=== PATIENT | female | born 1975 | race Caucasian/White ===

== ENCOUNTER → 2023-12-03 | Outpatient (CLI) | payer OTHER ==
--- NOTE | 2023-12-04 10:53 | XR ---
EXAMINATION TYPE: XR KUB DATE OF EXAM: 12/03/2023 12:37 PM CLINICAL INDICATION:Female, 48 years old with history of N20.0 Calculus of Kidney; COMPARISON: None. TECHNIQUE: One radiographic view of the abdomen was obtained. FINDINGS: The bowel gas pattern is nonspecific without dilated loops of small or large bowel. There i s no evidence for organomegaly or pneumoperitoneum. The osseous structures are intact. No abnormal calcifications are present. Fecal material and gas are demonstrated throughout the colon and rectum. IMPRESSION: Nonspecific bowel gas pattern without radiographic evidence for acute process.
== END | disposition home or self-care (01) ==
LOC: RADXRMAIN 12:07
PROVIDERS: ATTEND Urology
DX: N20.0 Calculus of kidney (principal)
CPT/HCPCS: 74018

== ENCOUNTER → 2024-01-14 | Outpatient (CLI) | payer OTHER ==
--- NOTE | 2024-01-15 11:18 | FL ---
ESOPHOGRAM. HISTORY: Dysphagia Esophagram was performed per the air contrast technique. The patient swallowed barium and effervesce nt crystals without difficulty or delay. Esophageal peristalsis and motility appear to be within normal limits. There is no evidence for filling defect, mass or diverticulum. No hiatal hernia seen. Subsequently single contrast cervical esophagram was performed which fails demonstrate evidence for a spiration penetration or mass. IMPRESSION: Unremarkable study.
== END | disposition home or self-care (01) ==
LOC: RADUSWWP 09:30
PROVIDERS: ATTEND Surgery Plastic and Reconstructive Surgery
DX: K44.9 Diaphragmatic hernia without obstruction or gangrene (principal); R13.10 Dysphagia, unspecified
CPT/HCPCS: 74220

== ENCOUNTER 2024-01-22 08:43 | Day surgery (SDC) | payer OTHER ==
--- NOTE | 2024-01-22 08:01 | P.GSHP ---
History of Present Illness H&P Date: 01/22/24 CHIEF COMPLAINT: GERD HISTORY OF PRESENT ILLNESS: The patient is a 48-year-old female who presents reports gastroesophageal reflux disease. Upper endoscopy was offered for further evaluation and management. PAST MEDICAL HISTORY: Please see list. PAST SURGICAL HISTORY: Please see list. MEDICATIONS: Please see list. ALLERGIES: Please see list. SOCIAL HISTORY: No illicit drug use FAMILY HISTORY: No reports of Crohn disease or ulcerative colitis. REVIEW OF ORGAN SYSTEMS: CONSTITUTIONAL: No reports of fevers or chills. GI: Denies any blood in stools or constipation. PHYSICAL EXAM: VITAL SIGNS: Stable GENERAL: Well-developed and pleasant in no acute distress. HEENT: No scleral icterus. Extraocular movements grossly intact. Moist buccal mucosa. NECK: Supple without lymphadenopathy. CHEST: Unlabored respirations. Equal bilateral excursions. CARDIOVASCULAR: Regular rate and rhythm. Distal 2+ pulses. ABDOMEN: Soft, nondistended. MUSCULOSKELETAL: No clubbing, cyanosis, or edema. ASSESSMENT: 1. Gastroesophageal reflux disease PLAN: 1. Recommend proceeding with an upper endoscopy Past Medical History Past Medical History: Diabetes Mellitus, GERD/Reflux, Hypertension, Osteoarthritis (OA), Sleep Apnea/CPAP/BIPAP Additional Past Medical History / Comment(s): GERD. CPAP History of Any Multi-Drug Resistant Organisms: None Reported Past Surgical History: Breast Surgery, Section, Hysterectomy, Joint Replacement Additional Past Surgical History / Comment(s): D&C, laparoscopy abdominal for infertility issues, bilateral total knee replacements, breast reduction. Past Anesthesia/Blood Transfusion Reactions: No Reported Reaction Smoking Status: Never smoker - Past Family History Mother Family Medical History: Hypertension Father Family Medical History: Cancer Medications and Allergies Home Medications Medication Instructions Recorded Confirmed Type ARIPiprazole [Abilify] 15 mg PO QAM 01/20/24 01/20/24 History Cyanocobalamin [Vitamin B-12] 500 mcg PO QAM 01/20/24 01/20/24 History DULoxetine HCL [Cymbalta] 60 mg PO QAM 01/20/24 01/20/24 History Dulaglutide [Trulicity] 3 mg SQ ASCENCIO 01/20/24 01/20/24 History Omeprazole 40 mg PO QAM 01/20/24 01/20/24 History hydroCHLOROthiazide 20 mg PO QAM 01/20/24 01/20/24 History lisinopriL 40 mg PO QAM 01/20/24 01/20/24 History metFORMIN HCL 500 mg PO BID-W/MEALS 01/20/24 01/20/24 History traZODone HCL [Desyrel] 50 - 150 mg PO HS 01/20/24 01/20/24 History Allergies Allergy/AdvReac Type Severity Reaction Status Date / Time seasonal Allergy runny Uncoded 01/20/24 14:51 nose, sneezing.
[~2024-01-22 08:43] MED LIST: LIDOCAINE 1% (10MG/ML) FOR IV START INTRADERMA PRN
[2024-01-22] MEDS: LACTATED RINGERS 1,000 ML IV SCH (09:25)
[2024-01-22 09:31] LABS: Glucose,Whole Blood 89 mg/dL (70-110)
[2024-01-22 09:51] VITALS: RESP 16; TEMP 97.5
[2024-01-22] MEDS ORDERED: PROPOFOL 10 MG/ML 20 ML VIAL IV ONE (10:13)
--- NOTE | 2024-01-22 10:45 | P.PCN ---
Date of Procedure: 01/22/24 Description of Procedure: PREOPERATIVE DIAGNOSIS: Gastroesophageal reflux disease. Morbid obesity. POSTOPERATIVE DIAGNOSIS: Gastroesophageal reflux disease. Morbid obesity. Gastritis. Gastric polyps OPERATION: Esophagogastroduodenoscopy with biopsies along esophagus, antrum and duodenum SURGEON: Bing North MD ANESTHESIA: MAC. INDICATIONS: The patient is a 48-year-old female who presents with reflux disease. Benefits and risks of the procedure were described. Informed consent was obtained. DESCRIPTION: The patient was brought into the endoscopy suite and laid in the left lateral decubitus position. An Olympus gastroscope was passed along the posterior oropharynx down to the distal esophagus where the squamocolumnar junction was encountered at 38 cm from the incisors. The stomach was entered and no bile reflux was found. Additional findings are listed below. Biopsies with cold forc eps were obtained of the antrum. The first through third portion of the duodenum was examined. Retroflexion of the scope confirmed Hill grade 3 lower esophageal valve. The squamocolumnar junction demonstrated LA grade B erosive esophagitis. The stomach was desufflated. The patient tolerated the procedure well. FINDINGS: Squamocolumnar junction 38 cm from the incisors. Diaphragmatic hiatus at 38 cm. Gastric polyps, benign, 4 mm, scattered Hill grade 3 lower esophageal valve. LA grade B erosive esophagitis. Biopsies obtained Biopsies obtained of the duodenum. Chronic gastritis with biopsies obtained. RECOMMENDATIONS: Upper endoscopy as needed. Plan - Discharge Summary Discharge Rx Participant: No New Discharge Prescriptions: Continue Dulaglutide [Trulicity] 3 mg SQ ASCENCIO ARIPiprazole [Abilify] 15 mg PO QAM hydroCHLOROthiazide 20 mg PO QAM DULoxetine HCL [Cymbalta] 60 mg PO QAM traZODone HCL [Desyrel] 50 - 150 mg PO HS metFORMIN HCL 500 mg PO BID-W/MEALS lisinopriL 40 mg PO QAM Omeprazole 40 mg PO QAM Cyanocobalamin [Vitamin B-12] 500 mcg PO QAM Discharge Medication List ARIPiprazole [Abilify] 15 mg PO QAM 01/20/24 [History] Cyanocobalamin [Vitamin B-12] 500 mcg PO QAM 01/20/24 [History] DULoxetine HCL [Cymbalta] 60 mg PO QAM 01/20/24 [History] Dulaglutide [Trulicity] 3 mg SQ ACSENCIO 01/20/24 [History] Omeprazole 40 mg PO QAM 01/20/24 [History] hydroCHLOROthiazide 20 mg PO QAM 01/20/24 [History] lisinopriL 40 mg PO QAM 01/20/24 [History] metFORMIN HCL 500 mg PO BID-W/MEALS 01/20/24 [History] traZODone HCL [Desyrel] 50 - 150 mg PO HS 01/20/24 [History] Follow up Appointment(s)/Referral(s): Bing North MD [STAFF PHYSICIAN] - 02/25/24 3:15 pm Patient Instructions/Handouts: Gastric Polyps (DC) Discharge Disposition: HOME SELF-CARE
[2024-01-22 11:36] VITALS: BP 111/75; PULSE 75
== END 2024-01-22 11:38 | disposition home or self-care (01) ==
LOC: ORWHC2ENDO 08:43
PROVIDERS: ATTEND Surgery Plastic and Reconstructive Surgery
DX: K29.50 Unspecified chronic gastritis without bleeding (principal); K21.00 Gastro-esophageal reflux disease with esophagitis, without bleeding; K31.7 Polyp of stomach and duodenum; I10 Essential (primary) hypertension; G47.30 Sleep apnea, unspecified; E66.01 Morbid (severe) obesity due to excess calories; E11.9 Type 2 diabetes mellitus without complications; M19.90 Unspecified osteoarthritis, unspecified site; Z79.84 Long term (current) use of oral hypoglycemic drugs; Z90.710 Acquired absence of both cervix and uterus; Z79.899 Other long term (current) drug therapy
CPT/HCPCS: 88305; 43239; J2704